=== PATIENT | male | born 1985 ===

== ENCOUNTER → 2023-06-16 | Outpatient (CLI) | payer BC ==
[2023-06-19 10:08] LABS: HSV-1 DNA Negative (Negative); HSV-2 DNA Negative (Negative)
== END | disposition home or self-care (01) ==
LOC: LAB 16:47 → LAB SHORT 16:47
PROVIDERS: Physician Assistant
DX: L08.9 Local infection of the skin and subcutaneous tissue, unspecified (principal)
CPT/HCPCS: 87529

== ENCOUNTER → 2025-04-15 | Outpatient (CLI) | payer BC ==
[2025-04-18 14:01] LABS: VARICELLA-ZOSTER VIRUS BY PCR Not Detected; VARICELLA-ZOSTER VIRUS SOURCE L FACE
== END ==
LOC: LAB SHORT 16:34 → LAB 16:34
PROVIDERS: Physician Assistant
DX: L30.9 Dermatitis, unspecified (principal)
CPT/HCPCS: 87798